=== PATIENT | male | born 1995 | race African-American/Black ===

== ENCOUNTER 2021-02-17 23:38 | Emergency (ER) | payer MEDICAID ==
[~2021-02-17] VITALS: Ht 167.6 cm; Wt 59.0 kg
[2021-02-18] MEDS ORDERED: HYDROCODONE/ACETAMINOPHEN 5/325MG TABLET PO STA (01:24)
[2021-02-18] MEDS ORDERED: IBUPROFEN 600MG TABLET PO ONE (01:30)
[2021-02-18 03:29] VITALS: BP 137/86
== END 2021-02-18 04:31 | disposition home or self-care (01) ==
LOC: ER 23:38
DX: S06.0X9A Concussion with loss of consciousness of unspecified duration, initial encounter (principal); J45.909 Unspecified asthma, uncomplicated; Z88.5 Allergy status to narcotic agent; V03.90XA Pedestrian on foot injured in collision with car, pick-up truck or van, unspecified whether traffic or nontraffic accident, initial encounter; Y93.89 Activity, other specified; Y92.488 Other paved roadways as the place of occurrence of the external cause
CPT/HCPCS: 99284